=== PATIENT | male | born 1985 | race Caucasian/White ===

== ENCOUNTER 2017-10-11 23:12 | Emergency (ER) | payer OTHER ==
[~2017-10-11] VITALS: Ht 170.2 cm; Wt 78.9 kg
[2017-10-11 23:19] VITALS: Ht 170.2 cm; Wt 78.9 kg
[2017-10-12] MEDS ORDERED: SOD CHLORIDE 0.9% 1,000 ML IV STA (02:24)
[2017-10-12] MEDS ORDERED: LEVOFLOXACIN 750 MG TABLET PO ONE (02:30)
--- NOTE | 2017-10-12 02:52 | ERD ---
ER Documentation Chief Complaint Chief Complaint painful urinatiom x 3 days, blood in urine today HPI This is a 31-year-old male who complains of 2 days of dysuria with chills but no documented fever. The patient was having some gross hematuria this evening. Denies any back pain no kidney history no suprapubic pain has burning at the penis and urethral meatus during urination. The patient says he is also passing blood clots with pink urine however here in the emergency department his urine is gross hematuria ROS All systems reviewed and are negative except as per history of present illness. Medications Home Meds Active Scripts Hydrocodone/Acetaminophen ([place] 10-325 Tablet) 1 Each Tablet, 1 TAB PO Q6H Y for PAIN, #12 TAB Prov:ASIAOSNATESTOLOS A. DO 10/12/17 Phenazopyridine Hcl* (Pyridium*) 200 Mg Tab, 200 MG PO TID Y for URINARY PAIN, # 6 TAB Prov:LEELEOS,APOSTOLOS A. DO 10/12/17 Ciprofloxacin Hcl* (Ciprofloxacin Hcl*) 500 Mg Tablet, 500 MG PO BID for 7 Days , TAB Prov:LEKKOS,APOSTOLOS A. DO 10/12/17 Allergies Allergies: Coded Allergies: No Known Allergy (Unverified , 10/11/17) PMhx/Soc Medical and Surgical Hx: pt denies Medical Hx History of Surgery: Yes (eye surgery in the past) Anesthesia Reaction: No Hx Neurological Disorder: No Hx Respiratory Disorders: No Hx Cardiac Disorders: No Hx Psychiatric Problems: No Hx Miscellaneous Medical Probl: No Hx Alcohol Use: Yes Hx Substance Use: No Hx Tobacco Use: No Smoking Status: Never smoker FmHx Family History: No coronary disease Physical Exam Vitals Vital Signs Date Time Temp Pulse Resp B/P Pulse Ox O2 Delivery O2 Flow Rate FiO2 10/11/17 23:19 97.8 124 20 158/95 96 Physical Exam Const: [Well-developed, well-nourished] Head: [Atraumatic, normocephalic] Eyes: [Normal Conjunctiva, PERRLA, EOMI, normal sclera, no nystagmus] ENT: [Normal External Ears, Nose and Mouth, moist mucus membranes.] Neck: [Full range of motion. No meningismus, no lymphadenopathy.] Resp: [Clear to auscultation bilaterally, no wheezing, rhonchi, rales] Cardio: [Regular rate and rhythm, no murmurs, S1 S2 present] Abd: [Soft, mild suprapubic tenderness, non distended. Normal bowel sounds, no guarding or rebound, no pulsitile abdominal masses or bruits] Skin: [No petechiae or rashes, no ecchymosis , no maculopapular rash] Back: [No midline or flank tenderness] Ext: [No cyanosis, or edema, FROM x 4, normal inspection, neurovascularly intact x 4] Neur: [Awake and alert, STR 5/5 x 4, sensation intact x 4, no focal findings, cerebellum intact] Psych: [Normal Mood and Affect] Result Diagram: 10/12/1724410/12/17244 Results 24 hrs Laboratory Tests Test 10/12/17 02:45 White Blood Count 9.910^3/ul Red Blood Count 4.7910^6/ul Hemoglobin 14.4g/dl Hematocrit 42.7% Mean Corpuscular Volume 89.1fl Mean Corpuscular Hemoglobin 30.1pg Mean Corpuscular Hemoglobin Concent 33.7g/dl Red Cell Distribution Width 12.3% Platelet Count 92798^3/UL Mean Platelet Volume 11.4fl Neutrophils % 72.4% Lymphocytes % 18.4% Monocytes % 8.4% Eosinophils % 0.1% Basophils % 0.3% Nucleated Red Blood Cells % 0.0/100WBC Neutrophils # 7.110^3/ul Lymphocytes # 1.810^3/ul Monocytes # 0.810^3/ul Eosinophils # 0.010^3/ul Basophils # 0.010^3/ul Nucleated Red Blood Cells # 0.010^3/ul Urine Color RED Urine Clarity CLEAR Urine pH 6.0 Urine Specific [place] 1.011 Urine Ketones NEGATIVEmg/dL Urine Nitrite NEGATIVEmg/dL Urine Bilirubin NEGATIVEmg/dL Urine Urobilinogen NEGATIVEmg/dL Urine Leukocyte Esterase TRACELeu/ul Urine Microscopic RBC > 182/HPF Urine Microscopic WBC 39/HPF Urine Mucus FEW/HPF Urine Hemoglobin 3+mg/dL Urine Glucose 1+mg/dL Urine Total Protein 2+mg/dl Sodium Level 139mmol/L Potassium Level 3.9mmol/L Chloride Level 100mmol/L Carbon Dioxide Level 25mmol/L Anion Gap 18 Blood Urea Nitrogen 7mg/dl Creatinine 0.80mg/dl Glucose Level 108mg/dl Calcium Level 9.1mg/dl Current Medications Medications (Trade) Dose Ordered Sig/Lianet Route PRN Reason Start Time Stop Time Status Last Admin Dose Admin Sodium Chloride (NS) 1,000 ml @ 1,000 mls/hr Q1H STAT IV 10/12/17 02:24 10/12/17 03:23 DC 10/12/17 03:02 Levofloxacin (Levaquin) 750 mg ONCE ONCE PO 10/12/17 02:30 10/12/17 02:31 DC 10/12/17 03:49 Lorazepam (Ativan) 1 mg ONCE ONCE IV 10/12/17 04:00 10/12/17 04:01 DC 10/12/17 03:41 Lorazepam (Ativan) 2 mg STK-MED ONCE .ROUTE 10/12/17 03:38 10/12/17 03:39 DC Procedures/MDM Placed Elliott catheter which expelled 300 cc of gross blood, then nurse irrigated the Elliott with 1 L of normal saline to clear. The patient was observed with Elliott catheter in place with only very slight tinge pink urine outputs. The patient does have a urinary tract infection. The patient is refusing to keep Elliott catheter in place, he wants the catheter removed prior to discharge He was given precautions that removing the Elliott could cause blood clots to form in his bladder which would cause a bladder outlet obstruction resulting in urinary retention Urine culture was sent. He was given Levaquin in the emergency department and discharged home with Cipro Departure Diagnosis: Primary Impression: Hemorrhagic cystitis Condition: Stable FELIX GARCIA DO Oct 12, 2017 02:52
[2017-10-12 02:59] LABS: BASOPHILS % 0.3 % (0.0-2.0); EOSINOPHILS % 0.1 % (0.0-7.0); HEMATOCRIT 42.7 % (42.0-52.0); HEMOGLOBIN 14.4 g/dl (14.0-18.0); LYMPHOCYTES # 1.8 10^3/ul (0.8-2.9); LYMPHOCYTES % 18.4 % (15.0-51.0); MEAN CORPUSCULAR HEMOGLOBIN 30.1 pg (29.0-33.0); MEAN CORPUSCULAR HGB CONC 33.7 g/dl (32.0-37.0); MEAN CORPUSCULAR VOLUME 89.1 fl (82.0-101.0); MEAN PLATELET VOLUME 11.4 fl (7.4-10.4); MONOCYTE # 0.8 10^3/ul (0.3-0.9); MONOCYTES % 8.4 % (0.0-11.0); NEUTROPHIL # 7.1 10^3/ul (1.6-7.5); NEUTROPHILS % 72.4 % (39.0-77.0); PLATELET COUNT 169 10^3/UL (140-415); RED BLOOD COUNT 4.79 10^6/ul (4.70-6.10); RED CELL DISTRIBUTION WIDTH 12.3 % (11.5-14.5); WHITE BLOOD COUNT 9.9 10^3/ul (4.8-10.8)
[2017-10-12 03:26] LABS: UR BLOOD (Dip) 3+ mg/dL (NEGATIVE); UR COLOR RED (YELLOW)
[2017-10-12 03:28] LABS: ADD UMIC YES; UR ASCORBIC ACID NEGATIVE (NEGATIVE); UR BILIRUBIN (Dip) NEGATIVE (NEGATIVE); UR CLARITY CLEAR (CLEAR); UR GLUCOSE (Dip) 1+ mg/dL (NEGATIVE); UR KETONES (Dip) NEGATIVE (NEGATIVE); UR LEUKOCYTE ESTERASE (Dip) TRACE Leu/ul (NEGATIVE); UR MUCUS FEW /HPF (NONE SEEN); UR NITRITE (Dip) NEGATIVE (NEGATIVE); UR RBC > 182 /HPF (0-5); UR SPECIFIC GRAVITY (Dip) 1.011 (1.003-1.030); UR TOTAL PROTEIN (Dip) 2+ mg/dl (NEGATIVE); UR UROBILINOGEN (Dip) NEGATIVE (NEGATIVE)
[2017-10-12] MEDS ORDERED: LORAZEPAM 2 MG INJ ONE (03:38)
[2017-10-12 03:51] LABS: CALCIUM 9.1 mg/dl (8.4-10.2); CREATININE 0.8 mg/dl (0.61-1.24); POTASSIUM 3.9 mmol/L (3.5-5.1)
[2017-10-12] MEDS ORDERED: LORAZEPAM 2 MG INJ IV ONE (04:00)
[2017-10-12 05:14] VITALS: BP 139/98; PULSE 106; RESP 23; TEMP 98.4
[2017-10-12] MEDS ORDERED: CIPR500T4 PO (05:16)
[2017-10-12] MEDS ORDERED: PHEN-538 PO (05:16)
[2017-10-12] MEDS ORDERED: HYDR-902 PO (05:16)
== END 2017-10-12 06:00 | disposition home or self-care (01) ==
LOC: FTE 23:12 → E/R 10-12 06:00
DX: N30.91 Cystitis, unspecified with hematuria (principal)
CPT/HCPCS: 36415; 80048; 81001; 85025; 87086; 96374; J2060; J7030; Z7502; Z7610